=== PATIENT | female | born 1995 | race Caucasian/White ===

== ENCOUNTER 2020-10-24 07:58 | Day surgery (SDC) | payer OTHER ==
[~2020-10-24] VITALS: Ht 162.6 cm; Wt 72.0 kg
[~2020-10-24 07:58] MED LIST: ACETAMINOPHEN 500 MG TABLET PO PRN; ALBU2.5V8 INH; CLON0.5T PO; FLUT1DIS IH; IV RINGERS,LACTATED 1000ML 1,000 ML IV SCH; LEVO137T3 PO; LORA10TA3 PO; PROCHLORPERAZINE 10 MG/2 ML VIAL. IVP PRN; ceFAZolin SODIUM IV Push 1 GM VIAL. IVP PRN; fentaNYL PF VIAL 100 MCG/2 ML VIAL IVP PRN
[2020-10-24] MEDS ORDERED: PROPOFOL 10 MG/ML (20ML) VIAL. IV ONE (08:17)
[2020-10-24] MEDS ORDERED: SUCCINYLCHOLINE 200 MG/10 ML VIAL. ONE (08:17)
[2020-10-24] MEDS ORDERED: DEXAMETHASONE SOD PHOS 4 MG/ML VIAL ONE (08:17)
[2020-10-24] MEDS ORDERED: NEOSTIGMINE METHYLSULFATE 5 MG/5 ML SYRINGE. ONE (08:17)
[2020-10-24] MEDS ORDERED: ONDANSETRON PF 4 MG/2 ML VIAL. ONE (08:17)
[2020-10-24] MEDS ORDERED: ROCURONIUM 50 MG/5 ML VIAL. ONE (08:17)
[2020-10-24] MEDS ORDERED: LIDOCAINE 1% PF 5 ML VIAL. ONE (08:17)
[2020-10-24] MEDS ORDERED: MIDAZOLAM HCL/PF 2 MG/2 ML VIAL. ONE (08:18)
[2020-10-24] MEDS ORDERED: GLYCOPYRROLATE 1 MG/5 ML VIAL. ONE (08:18)
[2020-10-24] MEDS ORDERED: fentaNYL PF VIAL 250 MCG/5 ML VIAL ONE (08:18)
[2020-10-24] MEDS ORDERED: BUPIVACAINE-EPI 0.25%-1:200000 MPF 30 ML VIAL. ONE (09:14)
[2020-10-24] MEDS ORDERED: KETOROLAC 30 MG/ML VIAL. ONE (09:43)
--- NOTE | 2020-10-24 10:09 | PDOC4 ---
Operative Note Operative Note Date: 10/24/2020 at 1006 Preoperative diagnosis: Recurrent umbilical hernia Postoperative diagnosis: Same Procedure: Open umbilical hernia repair with mesh Surgeon: Sourav Dictation: Patient is 25-year-old female has had previously a small umbilical hernia repaired she returns with recurrence. Procedure of umbilical hernia repair with mesh was explained to the patient detail risk benefits were also discussed including bleeding infection alternatives to this procedure also discussed with the patient who seemed to understand and gave a verbal written consent to have the procedure performed. Patient was taken to the operating room placed the supine position general anesthesia was initiated once patient was sleeping abated her abdomen was prepped and draped usual sterile fashion using ChloraPrep. Area below the umbilicus was injected with quarter percent Marcaine with epinephrine a curvilinear incision was made at the inferior border of the umbilicus with a 15 blade scalpel is carried down through the subcutaneous tissue using electrocautery right hemostasis hernia sac was enc ountered was excised along with some incarcerated omentum. A Ventralex Bard mesh was placed through the hernia defect this was sewn into place with a [id number] 0 Vicryl suture incorporating the mesh as well as the fascia. The deep subcutaneous layer was closed with 3-0 Vicryl running suture skin was reapproximated with 4 subcuticular Monocryl Mastisol Steri-Strips and island dressing were applied. Patient was awaken extubated in the operating room taken to recovery in stable condition all sponge instrument needle counts listed as correct estimated blood loss 5 mL CLIFF RODRIGUEZ MD Oct 24, 2020 10:08
[2020-10-24] MEDS ORDERED: OXYC1TAB15 PO (10:11)
--- NOTE | 2020-10-24 10:12 | DISCH ---
DISCHARGE INSTRUCTIONS Condition on Discharge Condition on Discharge: Stable Activity After Discharge Activity Instructions for Disc: Avoid exertion Other activity instructions: No lifting more than 20 pounds for 2 weeks Diet after Discharge Diet after Discharge: Regular Wound Incision Care Other wound/incision instructi: Angelika shower in 24 hours Contacting the DRKathy after DC Call your doctor for: If your condition worsens Follow-Up Follow up with: Dr. Rodriguez in 2 weeks CLIFF RODRIGUEZ MD Oct 24, 2020 10:12
[2020-10-24] MEDS ORDERED: oxyCODONE/APAP 5/325 1 TAB TABLET PO ONE (10:45)
[2020-10-24] MEDS ORDERED: MORPHINE SULFATE 2 MG/ML INJ. ONE (10:55)
[2020-10-24] MEDS: MORPHINE SULFATE 2 MG/ML INJ. IVP PRN ×2 (11:00→11:08)
[2020-10-24] MEDS ORDERED: HYDROmorphone 2 MG/ML VIAL ONE (11:10)
[2020-10-24] MEDS: HYDROmorphone 2 MG/ML VIAL IVP PRN ×2 (11:17→11:28)
[2020-10-24 11:50] VITALS: BP 110/46
== END 2020-10-24 12:25 | disposition home or self-care (01) ==
LOC: SURG 07:58
PROVIDERS: ATTEND Surgery
DX: K42.0 Umbilical hernia with obstruction, without gangrene (principal); K21.9 Gastro-esophageal reflux disease without esophagitis; E03.9 Hypothyroidism, unspecified; J45.909 Unspecified asthma, uncomplicated; F41.9 Anxiety disorder, unspecified; F32.9 Major depressive disorder, single episode, unspecified; Z79.899 Other long term (current) drug therapy; Z98.890 Other specified postprocedural states; Z88.8 Allergy status to other drugs, medicaments and biological substances
CPT/HCPCS: 49587; 81025; A4215; A4364; A4930; A6258; A6402; C1781; J0330; J0690; J0780; J1100; J1170; J1885; J2250; J2270; J2405; J2704; J2710; J3010; J3490; A4452